=== PATIENT | female | born 1990 | race Two or more races ===

== ENCOUNTER 2016-12-09 13:15 | Inpatient (IN) | payer MEDICAID ==
[2016-12-09] MEDS ORDERED: OXYTOCIN IN LR 500 ML IV ONE (13:55)
[2016-12-09] MEDS ORDERED: LACTATED RINGERS 1,000 ML IV PRN (13:55)
[2016-12-09] MEDS ORDERED: SODIUM CHLORIDE 0.9% FLUSH 10 ML ONE (13:57)
[2016-12-09] MEDS ORDERED: IV START KIT ONE (13:58)
[2016-12-09] MEDS ORDERED: LIDOCAINE 1% (PRES FREE) 30 ML VIAL ONE (13:59)
[2016-12-09] MEDS ORDERED: LIDOCAINE Viscous 2% 15 ML UDCUP ONE (13:59)
[2016-12-09] MEDS ORDERED: MINERAL OIL 25 ML BOT ONE (13:59)
[2016-12-09] MEDS ORDERED: OXYTOCIN 10 UNITS/ML VIAL ONE (13:59)
[2016-12-09] MEDS ORDERED: PUMP TUBING ONE (14:00)
--- NOTE | 2016-12-09 14:43 | US ---
OB LIMITED HISTORY: Confirm demise. Patient is 37 weeks and 5 days gestation. Estimated date of delivery is 12/25/2016. COMPARISONS: None FINDINGS: Multiple grayscale, color-flow and duplex Doppler images during Limited ultrasound are obtained. No cardiac activity is identified. Amniotic fluid volume is low by visualization. Placenta is anterior. Fetus is vertex. There is some irregularity to the soft tissues of the head and morphology of the skull. Findings are of unknown clinical significance. IMPRESSION: demise. Other findings as above. Findings were called to Dr. Roy at approximately 1438 hours on 12/09/2016.
[2016-12-09] MEDS ORDERED: DINOPROSTONE 10 MG SUP VG ONE (15:05)
[2016-12-09 15:15] LABS: HEMATOCRIT 34.9 % (37.0-47.0); HEMOGLOBIN 11.4 gm/l (12.0-16.0); MEAN CORPUSCULAR HEMOGLOBIN 26.5 pg (27.0-31.0); MEAN CORPUSCULAR HGB CONC 32.7 g/dl (33.0-37.0); RED CELL DISTRIBUTION WIDTH 13.7 % (11.5-14.5)
[2016-12-09 15:38] VITALS: BMI 27.3
[2016-12-09 15:42] LABS: ALB/GLOB RATIO 0.9 (>1.0); ALBUMIN 3.3 gm/dL (3.5-5.7); CALCIUM 9.3 mg/dL (8.6-10.3)
[2016-12-09 17:18] LABS: AMPHETAMINES/METHAMPHETAMINES NEGATIVE (NEGATIVE); COCAINE NEGATIVE (NEGATIVE); MARIJUANA NEGATIVE (NEGATIVE); METHADONE NEGATIVE (NEGATIVE); OPIATES NEGATIVE (NEGATIVE); TRICYCLIC ANTIDEPRESSANTS NEGATIVE (NEGATIVE)
--- NOTE | 2016-12-09 18:16 | PCMAN ---
OB Admission Note - History : 3 Term: 2 : 0 Abortions (S&E): 0 Livin EDC:: 12/25/16 Gestational Age (weeks): 37 Days (#/7): 6 Admit Cervical Dilation:: 1 Admit Station:: -3 Admit Presentaton:: Vertex Membrane Status: Intact Contractions: No Heart Rate:: 0 Status:: IUFD Summary of Course:: Uncomplicated PNC. Labs reviewed. Pt noted no FM since 9 pm last night. Went to clinic this am and no FHT's. No lof or vb. NO uc's. Denies [place], vis changes, RUQ pain or new swelling. No vag dc or foul smelling dc. Had routine pnc and us. Us performed here and confirmed IUFD in vertex presentation, mal shaped head? and low fluid. Labs here wnl. No s/s pre eclampsia, HELLP, UDS neg. - Labs Blood Type: A (+) positive Rubella Status: Immune GBS Status: Negative Abnormal Labs: None - Review of Systems No f/c/n/v. No cough, runny nose, ear pain or recent viral illness. Has been doing well up until last pm. has been acting out and now using drugs. today and now he is in custody of police. Pt. has 2 sister in laws helping her. - Physical Exam General: Afebrile, Other (tearful), No Acute Distress Psych/Mental Status: Mood/Affect Appropriate Neurological: Alert, Normal Speech Lungs: Clear to Auscultation Bilaterally Cardiovascular: Regular Rate and Rhythm, No Murmur Abdomen: Normal Bowel Sounds, Other (gravid, leopolds vertex.), No Tenderness, No Distention Genitourinary: Normal Female Genitalia Extremities: Full ROM, No Edema Skin: Warm, No Rash - Problems (1) demise, greater than 22 weeks, antepartum Qualifiers: Fetus number: single or unspecified fetus Qualifier Code: (O36.4XX0) Maternal care for intrauterine , not applicable or unspecified Status: Acute Code: O36.8GW2Medjccxntz/Plan: Pt. admitted, cervix 1/long and posterior. Cervical ripening with cervidil. Confirmed IUFD with US. Discussed at length difficulty in knowing why this happens. Will discuss more desire for autopsy/evaluation. She will meet with Tad as well. Possible epidural for pain relief. Sister in law X 2 here for support. Questions answered. Labs checked and no s/s of infection. RN's and team aware and helping with patient to assure compassionate care.
[2016-12-09] MEDS ORDERED: ACETAMINOPHEN 500 MG TABLET PO PRN (19:02)
[2016-12-09] MEDS ORDERED: ZOLPIDEM TARTRATE 5 MG TABLET PO PRN (20:00)
--- NOTE | 2016-12-09 20:02 | PDOC36 ---
Provider Note Subject: Pt. doing fairly well. Starting to feel uc's in her back. Cervidil placed at 4 pm. Ate some food. Family present. Questions answered. VSSAF. Labs reviewed.
[2016-12-10] MEDS ORDERED: HYDROCODONE/ACETAMINOPHEN 5/325MG TABLET ONE (07:08)
[2016-12-10] MEDS ORDERED: IBUPROFEN 800 MG TABLET ONE (07:08)
[2016-12-10] MEDS: IBUPROFEN 800 MG TABLET PO PRN ×3 (07:15→20:00)
[2016-12-10] MEDS: HYDROCODONE/ACETAMINOPHEN 5/325MG TABLET PO PRN ×3 (07:15→20:00)
[2016-12-10] MEDS ORDERED: DOCUSATE SODIUM 100 MG CAPSULE PO PRN (07:31)
[2016-12-10] MEDS ORDERED: MAGNESIUM HYDROXIDE 30 ML UDCUP PO PRN (07:31)
[2016-12-10] MEDS ORDERED: LACTATED RINGERS 1,000 ML IV PRN (07:31)
[2016-12-10] MEDS ORDERED: LANOLIN 50 APPLIC/7G TUBE TP PRN (07:31)
[2016-12-10] MEDS ORDERED: BENZOCAINE/MENTHOL 60 APPLIC/BOT TP PRN (07:31)
[2016-12-10] MEDS ORDERED: SENNOSIDES 8.6 MG TABLET PO PRN (07:31)
[2016-12-10] MEDS ORDERED: CALCIUM CARBONATE 500 MG TAB.CHEW PO PRN (07:31)
--- NOTE | 2016-12-10 09:38 | PCMDEL ---
Delivery Note - Labor 1st stage (hr/min):: 3hours 45min 2nd stage (hr/min):: 3 min 3rd stage (hr/min):: 5 min Total (hr/min):: 3 hour 53 min Pushed (hr/min):: 1 min - Delivery Delivery (Date): 12/10/16 Delivery (Time): 06:51 Infant Gender: Male Presentation: Cephalic Position: OA Umbilical Cord: 3 Vessel Delayed Cord Clamping:: Not Performed EBL:: 300 Perineum:: intact Suture:: none Length ROM:: 1 min Comments:: , one push. Baby boy without heart rate and with very swollen, mishapen head, no attempt at respiration, skin macerated in spots. Cord appeared with 3vessels, normal at insertion into baby abdomen, discolored cord, thickened and no blood in cord. At AROM, no fluid, small blood clot. Placenta was easily delivered. Baby wrapped in blanket and placed with mom.
[2016-12-10 15:45] VITALS: BP 111/66
--- NOTE | 2016-12-10 18:10 | PDOC39B ---
Hospital Course: ADMIT DATE: 12/09/16 DISCHARGE DATE: 12/10/16 ADMISSION DIAGNOSES: IUFD at 38 wks PROCEDURES: HISTORY OF PRESENT ILLNESS: 26 year old G3 T2 L2 at 38 weeks 0 days presenting with decreased movement and no FHTs HOSPITAL COURSE: The patient was admitted for IOL for IUFD. Progressed to complete and had uncomplicated . Pt grieved appropriately and was supported by FOB's family ([id number] and [id number], FOB was in group home for drugs). After delivery, pt had time w baby and later stated she desired DC home tonight on PPD#0. By day of discharge the patient is ambulating, eating, voiding, and passing flatus without difficulty. Pain is controlled and lochia is appropriate. - Physical Exam Vital Signs: Temp Pulse Resp BP Pulse Ox 98.4 F 76 18 111/66 12/10/16 15:39 12/10/16 15:39 12/10/16 15:39 12/10/16 15:39 General: Afebrile, No Acute Distress Psych/Mental Status: Mood/Affect Appropriate, Judgment/Insight Intact Neurological: Grossly Intact, Alert, Normal Speech HEENT: Atraumatic, Mucous membr. moist/pink Fundus: Firm, Midline, Below Umbilicus - Discharge Diagnosis (1) demise, greater than 22 weeks, antepartum Qualifiers: Fetus number: single or unspecified fetus Qualifier Code: (O36.4XX0) Maternal care for intrauterine , not applicable or unspecified Status: AcuteAssessment/Plan: 38wks IUFD Discussed autopsy/evaluation, and pt decided to decline due to cost Pt met with Tad as well. (2) (normal spontaneous vaginal delivery) Status: AcuteAssessment/Plan: s/p of IUFD PPD#0, doing well Desires DC home PP precautions given Pelvic rest - Discharge Plan Condition: Good Disposition: Home Instruction Forms: Vaginal Discharge Instructions Prescriptions: Zolpidem Tartrate [AMBIEN 5 MG TABLET (F)] 5 mg PO BEDTIME PRN #5 tablet PRN Reason: Sleep Docusate Sodium [COLACE 100 MG CAPSULE (F)] 100 mg PO DAILY PRN #60 capsule PRN Reason: Comfort Benzocaine/Menthol [DERMOPLAST SPRAY (SHF)] 1 applic TP PRN PRN #1 bot PRN Reason: Patient Comfort Hydrocodone/Acetaminophen [Hydrocodon-Acetaminophen 5-325] 1 - 2 tab PO Q6H PRN #10 PRN Reason: Pain Ibuprofen [IBUPROFEN 800 MG TABLET (SHF)] 800 mg PO Q6H PRN #60 tablet PRN Reason: Pain (Mild) Follow-Up: Sarai Renee PA [Primary Care Provider] - In 2 weeks (call clinic to sched )
--- NOTE | 2016-12-15 13:44 | SURGPATH ---
[facility] [address] [place] [id number] Patient Name: HERLINDA BOOTH MR#: [id number] : 1990 Gender: F Specimen #: [id number] Collected: 12/10/2016 Received: 12/11/2016 Reported: 12/15/2016 Submitting Phys: LISA CHRISTIAN Copy To Phys: [facility] Clinical History / Pre-Operative Diagnosis: None provided Specimen Source / Surgical Procedure Performed: Placenta Interpretation: PLACENTA: - THIRD TRIMESTER PLACENTA WITH THREE-VESSEL CORD - MINIMAL INFARCTS AND MINIMAL INTERVILLOUS FIBRIN Electronically Signed Out Shyam Montemayor M.D. Gross Description: The specimen is received in a formalin filled container labeled with the patient's name and "placenta". A 33 x 3.5 cm, hypoechoic, diffusely edematous, three vessel umbilical cord inserts 3 cm from the nearest edge of a 15 x 15 x 3.5 cm, 500 g discoid placenta. The surface and membranes are glistening and purple ortiz. The membranes insert normally. There is focal pale-ortiz subchorionic fibrin. The maternal surface is red-brown spongy without missing cotyledons. Sectioning through the disc reveals no nodule or induration. Summary: [place] placenta with focal subchorionic fibrin and edematous umbilical cord. A-umbilical cord B-membranes C-edge section adjacent to umbilical cord insertion site including subchorionic fibrin D-random full thickness section Brynn Centeno Microscopic Description: Three-vessel cord is edematous and otherwise unremarkable. Membranes do not show acute inflammation or meconium. The third trimester placental parenchyma is mature without villitis. There is minimal intervillous fibrin and minimal infarction. 1: [id number] O43.893
== END 2016-12-10 22:34 | disposition home or self-care (01) | DRG 775 ==
LOC: FBC 13:15 → EDSTATUS 12-25 10:07
PROVIDERS: ADMIT Family Medicine; ATTEND Family Medicine
PROC: 10E0XZZ Delivery of Products of Conception, External Approach (ICD-10-PCS; principal; 2016-12-10)
PROC: 10907ZC Drainage of Amniotic Fluid, Therapeutic from Products of Conception, Via Natural or Artificial Opening (ICD-10-PCS; 2016-12-10)
DX: O36.4XX0 Maternal care for intrauterine death, not applicable or unspecified (principal); Z37.1 Single stillbirth; Z3A.38 38 weeks gestation of pregnancy